=== PATIENT | male | born 1950 | race Caucasian/White ===

== ENCOUNTER 2017-06-11 07:05 | Day surgery (SDC) | payer BC, OTHER ==
[~2017-06-11] VITALS: Ht 186.7 cm; Wt 74.0 kg
[~2017-06-11 07:05] MED LIST: CHOL100011 PO; MULT-658 PO
[2017-06-11] MEDS ORDERED: OXYMETAZOLINE NASAL SPRAY 0.05%, 15ML ONE (07:15)
[2017-06-11] MEDS ORDERED: LIDOCAINE/PF 1%, 30ML ONE (07:15)
[2017-06-11] MEDS ORDERED: EPINEPHRINE TOPICAL SOLN 1 MG/ML, 30ML ONE (07:15)
[2017-06-11] MEDS ORDERED: FLUORESCEIN OPHTHALMIC 1 MG STRIP ONE (07:15)
[2017-06-11] MEDS ORDERED: EPINEPHRINE 1 MG/ML, 1ML ONE (07:16)
[2017-06-11 07:27] VITALS: BP 140/84
[2017-06-11] MEDS ORDERED: LACTATED RINGERS 1,000 ML IV SCH (07:30)
[2017-06-11] MEDS ORDERED: LIDOCAINE 1%, 2ML SQ PRN (07:30)
[2017-06-11] MEDS ORDERED: LIDOCAINE/PF 1%, 30ML INFIL ONE (08:20)
[2017-06-11] MEDS ORDERED: KETOROLAC 30 MG/1 ML ONE (08:28)
[2017-06-11] MEDS ORDERED: MIDAZOLAM 1 MG/ML, 2ML ONE (08:29)
[2017-06-11] MEDS ORDERED: FENTANYL PF 100 MCG/2ML ONE (08:29)
[2017-06-11] MEDS ORDERED: LABETALOL 5MG/ML, 20ML IV PRN (09:00)
[2017-06-11] MEDS ORDERED: EPHEDRINE 50 MG/ML, 1ML IVPush PRN (09:00)
[2017-06-11] MEDS ORDERED: ACETAMINOPHEN 325 MG TABLET PO PRN (09:00)
[2017-06-11] MEDS ORDERED: HYDROmorphone 1 MG/ML, 1ML IV PRN (09:00)
[2017-06-11] MEDS ORDERED: PROMETHAZINE 25 MG/ML, 1ML IV PRN (09:00)
[2017-06-11] MEDS ORDERED: hydrALAzine 20 MG/ML, 1ML IV PRN (09:00)
[2017-06-11] MEDS ORDERED: ONDANSETRON 2MG/ML, 2ML IVPush PRN (09:00)
[2017-06-11] MEDS ORDERED: MEPERIDINE/PF 25MG/0.5ML IVPush PRN (09:00)
[2017-06-11] MEDS ORDERED: HYDROcodone/APAP 7.5-325MG/15ML UDC PO PRN (09:00)
[2017-06-11] MEDS ORDERED: MIDAZOLAM 1 MG/ML, 2ML IV PRN (09:00)
[2017-06-11] MEDS ORDERED: METOPROLOL 1 MG/ML, 5ML IV PRN (09:00)
[2017-06-11] MEDS ORDERED: FENTANYL PF 100 MCG/2ML IV PRN (09:00)
[2017-06-11] MEDS ORDERED: ALBUTEROL SULFATE 2.5 MG/3 ML NPPB PRN (09:00)
[2017-06-11] MEDS ORDERED: DIAZEPAM 5 MG/ML, 2ML IVPush PRN (09:00)
[2017-06-11] MEDS ORDERED: OXYcodone 5 MG/5 ML ORAL.SOL UDC PO PRN (09:00)
[2017-06-11] MEDS ORDERED: DEXAMETHASONE 4 MG/ML, 1ML ONE (09:04)
[2017-06-11] MEDS ORDERED: ONDANSETRON 2MG/ML, 2ML ONE (09:04)
[2017-06-11] MEDS ORDERED: SUCCINYLCHOLINE 20 MG/ML, 10ML ONE (09:04)
[2017-06-11] MEDS ORDERED: PROPOFOL 10 MG/ML, 20ML ONE (09:04)
[2017-06-11] MEDS ORDERED: ROCURONIUM 10 MG/ML,10ML ONE (09:04)
[2017-06-11] MEDS ORDERED: CEFAZOLIN 1,000 MG ONE (09:04)
[2017-06-11] MEDS ORDERED: ACETAMINOPHEN 650 MG/20.3 ML UDC ONE (09:40)
[2017-06-11] MEDS ORDERED: OXYcodone 5 MG/5 ML ORAL.SOL UDC ONE (09:40)
== END 2017-06-11 11:45 ==
LOC: OUT 07:05
PROVIDERS: ATTEND Otolaryngology
DX: K11.20 Sialoadenitis, unspecified (principal); J35.8 Other chronic diseases of tonsils and adenoids; Z88.0 Allergy status to penicillin
CPT/HCPCS: 42104; 88305; 88331; 93005; J0171; J0330; J0690; J1100; J1885; J2250; J2405; J2704; J3010; J3490; J7120